=== PATIENT | female | born 1965 | race Two or more races ===

== ENCOUNTER 2017-07-07 23:00 | Emergency (ER) | payer SELFPAY ==
[~2017-07-07] VITALS: Ht 160 cm; Wt 64.0 kg
[2017-07-08 00:46] VITALS: BP 112/74
== END 2017-07-08 03:10 | disposition home or self-care (01) ==
LOC: ER 23:00
DX: Z04.8 Encounter for examination and observation for other specified reasons (principal)
CPT/HCPCS: 99283